=== PATIENT | female | born 2000 | race Caucasian/White ===

== ENCOUNTER 2025-09-07 13:22 | Emergency (ER) | payer OTHER, SELFPAY ==
[2025-09-07 13:31] VITALS: BP 105/79; PULSE 114; RESP 16; TEMP 36.6; O2SAT 98
--- NOTE | 2025-09-07 14:43 | ED.GENADULT ---
HPI - General Adult General Chief complaint: Skin/Abscess/Foreign Body Stated complaint: Rash on left arm Source: patient Mode of arrival: ambulatory Limitations: no limitations History of Present Illness HPI narrative: Patient presents for evaluation of a blistered lesion to left forearm. She first experienced itching in the left forearm two days ago. She was wearing a sweater at the time of the event. She later noted redness and developed a blistered lesion in the forearm thereafter. She applied hydrocortisone cream without improvement. No fever, chills, nausea, vomiting or drainage from the area. She denies considerable pain. She has an of streaking that goes proximally into the left upper arm. She is not diabetic. Related Data Home Medications ?Medication ?Instructions ?Recorded ?Confirmed ?Last Taken ?Type No Home Medications 09/07/25 09/07/25 Unknown History Allergies Allergy/AdvReac Type Severity Reaction Status Date / Time No Known Allergies Allergy Verified 09/07/25 13:32 Review of Systems Review of Systems: CONSTITUTIONAL: Denies fever, chills, or sweats. EYES: Denies visual changes, redness, or discharge. ENT: Denies rhinorrhea, congestion, sore throat, or otalgia. CARDIOVASCULAR: Denies chest pain, palpitations, or edema. RESPIRATORY: Denies cough or dyspnea. GASTROINTESTINAL: Denies abdominal pain, nausea, vomiting, or diarrhea. GENITOURINARY: Denies dysuria or hematuria. SKIN: Reports blistered lesion to left forearm with surrounding redness that streaks into the left upper arm MUSCULOSKELETAL: Denies back pain, joint pain, or myalgia. NEUROLOGIC: Denies headache, numbness, dizziness, or weakness. PSYCHIATRIC: Denies anxiety or depression. [facility] Past Medical History Medical History No pertinent past medical history Surgical History Surgical History No pertinent past surgical history Family History Family History Mother Family history non-contributory Social History Social History Additional occupation/education comments: dental student Gender identity (if verbalized by the patient): Female Spiritual care concerns: No Exam Narrative: GENERAL: Well-appearing, well-nourished, and in no acute distress. HEAD: Normocephalic, atraumatic. EYES: PERRLA and EOMI. ENT: Nares clear, no rhinorrhea or epistaxis. Mucous membranes moist. Oropharynx without tonsillar hypertrophy exudate or other lesions. Bilateral TMs pearly collins nonbulging NECK: Supple. No adenopathy or masses. No carotid bruits or JVD CHEST: Clear to auscultation. No respiratory distress. No wheezes rales or rhonchi HEART: Regular rate and rhythm. No murmur heard. Normal peripheral pulses. ABDOMEN: Soft, nontender, nondistended, normal active bowel sounds. EXTREMITIES: Normal range of motion. No edema. SKIN: Approximately 1.5 cm blistered lesion to the left forearm with surrounding redness. There is a streak of erythema moving proximally into the left upper arm. NEURO: No focal deficits. Alert and oriented x3. PSYCH: Normal mood and affect. Course Course Emergency Course: This is a 24-year-old female who presented for evaluation of a blistered lesion to the left forearm. There is erythema streaking into the left upper arm. Given the presence of streaking, I recommended she go to the ER for further evaluation and treatment. She is agreeable with this plan. [facility] is her facility of choice. I contacted the ER at [facility] and spoke with RN, Kike. He indicates that Dr Cardona will accept pt for transfer there. Pt transferred via private vehicle. Level of Care: Express Care Visit Vital Signs Vital signs: Vital Signs Temperature 36.6 C 09/07/25 13:31 Pulse Rate 114 H 09/07/25 13:31 Respiratory Rate 16 09/07/25 13:31 Blood Pressure 105/79 09/07/25 13:31 Pulse Oximetry 98 09/07/25 13:31 Oxygen Delivery Room Air 09/07/25 13:31 Temperature 36.6 C 09/07/25 13:31 Pulse Rate 114 H 09/07/25 13:31 Respiratory Rate 16 09/07/25 13:31 Blood Pressure 105/79 09/07/25 13:31 Pulse Oximetry 98 09/07/25 13:31 Oxygen Delivery Room Air 09/07/25 13:31 Medical Decision Making Vital Signs Vital Signs: Vital Signs Temperature 36.6 C 09/07/25 13:31 Pulse Rate 114 H 09/07/25 13:31 Respiratory Rate 16 09/07/25 13:31 Blood Pressure 105/79 09/07/25 13:31 Pulse Oximetry 98 09/07/25 13:31 Oxygen Delivery Room Air 09/07/25 13:31 Temperature 36.6 C 09/07/25 13:31 Pulse Rate 114 H 09/07/25 13:31 Respiratory Rate 16 09/07/25 13:31 Blood Pressure 105/79 09/07/25 13:31 Pulse Oximetry 98 09/07/25 13:31 Oxygen Delivery Room Air 09/07/25 13:31 Discharge Plan Discharge Clinical Impression: Cellulitis Patient Disposition: Acute Care Hospital Condition: Stable Patient Language: Cymro Prescriptions: No Action No Home Medications Time of Disposition: 14:42
--- OUTSIDE RECORDS SUMMARY | 2025-09-07 16:19 | XMS_ITS | Clinical Summary ---
Author Organization [facility] Address [address] [place] [address] Care Team Providers Care Puttier Name Role Phone None, Provider Primary Care Provider Unavaila ble Allergies No known active allergies Social History Tobacco Use Types Packs/Day Years Used Date Smoking Tobacco: Never Smokeless Tobacco: Never Alcohol Use Standard Drinks/Week Comments Yes 0 (1 standard drink = 0.6 oz pur e alcohol) rarely Comments No Sex and Gender Information Value Date Recorded Sex Assigned at Not on file Legal Sex Female 10:10 AM CDT Gender Identity Not on file Sexual Orientation Not on file Last Filed Vital Signs Vital Sign Reading Time Taken Comments Blood Pressure 106/74 06/15/2021 10:21 AM CDT Pulse 100 06/15/2021 11:24 AM CDT Temperature 37.1 C (98.7 F) 06/15/2021 10:21 AM CDT Respiratory Rate 18 06/15/2021 10:21 AM CDT Oxygen Saturation 96% 06/15/2021 10:21 AM CDT Inhaled Oxygen Concentration - - Weight 65.8 kg (145 lb) 06/15/2021 10:58 AM CDT Height 170.2 cm (5' 7) 06/15/2021 10:21 AM CDT Body Mass Index 22.71 06/15/2021 10:21 AM CDT Plan of Treatment Health Maintenance Due Date Last Done Comments Cervical Cancer Screening Pa p Smear (Age 21 to 29) Every 3 Years 1998 Cervical Cancer Screening 1998 Annual Physical 2001 HPV Vaccines (1 - 3-dose series) 2013 Hepatitis C 2016 DTaP, Tdap and Td Vaccines ( 1 - Tdap) 2017 Hepatitis B Vaccines (1 of 3 - 19+ 3-dose series) 2017 COVID-19 Vaccine (2023-2 5 season) 2025 Influenza Adult (#1) 2025 Hepatitis A Vaccines Aged Out No long er eligible based on patient's age to complete this topic Meningococcal B Vaccine Aged Out No l onger eligible based on patient's age to complete this topic Meningococcal Vaccine Aged Out No saundra jim eligible based on patient's age to complete this topic Pneumococcal Vaccine: Pediat rics (0 to 5 Years) and At-Risk Patients (6 to 49 Years) Aged Out No longer eligible b ased on patient's age to complete this topic RSV Immunizations Under 20 Months Aged Out No longer eligible based on patient's age to complete this topic Insurance Care Teams Puttier Relationship Specialty Start Date End Date None, Provider, PCP - General 06/15/21
--- OUTSIDE RECORDS SUMMARY | 2025-09-07 16:19 | XMS_ITS | Clinical Summary ---
Author Organization [facility] Address [address] [place] [address] Care Team Providers Care Spiral Tube Winder Helper Name Role Phone Unavailable Primary Care Provider Unavailabl e Medications chlorhexidine (PERIDEX) 0.12 % solution Use 15 mL in the mouth or throat twice a day. Swish and spit with 15 mL twice daily after brushing (do not use for more than two consecutive weeks) 473 mL 1 Active ibuprofen (ADVIL,MOTRIN) 600 mg tablet Take 1 tablet (600 mg total) by mouth every 6 (six) hours if needed for mild pain or moderate pain. 20 tablet 1 Active Social History Tobacco Use Types Packs/Day Years Used Date Smoking Tobacco: Never Smokeless Tobacco: Never Alcohol Use Standard Drinks/Week Comments Yes 0 (1 standard drink = 0.6 oz pur e alcohol) Comments Unknown Sex and Gender Information Value Date Recorded Sex Assigned at Not on file Legal Sex Female 6:49 AM PST Gender Identity Not on file Sexual Orientation Not on file Plan of Treatment Health Maintenance Due Date Last Done Comments Dental Oral Exam 1998 Dental Prophylaxis 1998 Dental X-Ray: Bitewings 1998 Dental X-Ray: Full Mouth 1998 Dental X-Ray: Panoramic 11/08/2024 11/07/2021 Insurance [employer] PPO
--- OUTSIDE RECORDS SUMMARY | 2025-09-07 16:19 | XMS_ITS | Encounter Summary ---
Author Organization [facility] Address [address] [place] [address] Care Team Providers Care Clicker Operator Name Role Phone Unavailable Primary Care Provider Unavailabl e Prior Encounters Date Type Department Care Team Description 11/07/2021 Travel 11/07/2021 8:45 AM PACKING LINE OPERATOR Office Visit [facility] [address] [place] [address] Natacha Chow DDS Plan of Treatment Not on file Procedures Procedure Name Priority Date/Time Associated Diagnosis Comments PLACEMENT OF INTRA-SOCKET BIOLOGICAL DRESSING TO AID IN HEMOSTASIS OR CLOT STABILIZATION, PER SITE Routine 11/07/2021 8:45 AM PACKING LINE OPERATOR PLACEMENT OF INTRA-SOCKET BIOLOGICAL DRESSING TO AID IN HEMOSTASIS OR CLOT STABILIZATION, PER SITE Routine 11/07/2021 8:45 AM PACKING LINE OPERATOR PLACEMENT OF INTRA-SOCKET BIOLOGICAL DRESSING TO AID IN HEMOSTASIS OR CLOT STABILIZATION, PER SITE Routine 11/07/2021 8:45 AM PACKING LINE OPERATOR PLACEMENT OF INTRA-SOCKET BIOLOGICAL DRESSING TO AID IN HEMOSTASIS OR CLOT STABILIZATION, PER SITE Routine 11/07/2021 8:45 AM PACKING LINE OPERATOR OS CONSULT Routine 11/07/2021 8:45 AM PACKING LINE OPERATOR THERAPEUTIC PARENTERAL DRUGS, TWO OR MORE ADMINISTRATIONS, DIFFERENT MEDICATIONS Routine 11/07/2021 8:45 AM PACKING LINE OPERATOR DEEP SEDATION/GENERAL ANESTHESIA EACH SUBSEQUENT 15 MINUTE INCREMENT Routine 11/07/2021 8:45 AM PACKING LINE OPERATOR DEEP SEDATION/GENERAL ANESTHESIA EACH SUBSEQUENT 15 MINUTE INCREMENT Routine 11/07/2021 8:45 AM PACKING LINE OPERATOR DEEP SEDATION/GENERAL ANESTHESIA EACH SUBSEQUENT 15 MINUTE INCREMENT Routine 11/07/2021 8:45 AM PACKING LINE OPERATOR DEEP SEDATION/GENERAL ANESTHESIA FIRST 15 MINUTES Routine 11/07/2021 8:45 AM PACKING LINE OPERATOR 17 REMOVAL OF IMPACTED TOOTH - COMPLETELY BONY Routine 11/07/2021 8:45 AM PACKING LINE OPERATOR 16 REMOVAL OF IMPACTED TOOTH - COMPLETELY BONY Routine 11/07/2021 8:45 AM PACKING LINE OPERATOR 1 REMOVAL OF IMPACTED TOOTH - COMPLETELY BONY Routine 11/07/2021 8:45 AM PACKING LINE OPERATOR 32 REMOVAL OF IMPACTED TOOTH - COMPLETELY BONY Routine 11/07/2021 8:45 AM PACKING LINE OPERATOR Visit Diagnoses Not on file [facility]
--- OUTSIDE RECORDS SUMMARY | 2025-09-07 16:20 | XMS_ITS | Clinical Summary ---
Author Organization [facility] Address [address] [place] [address] Care Team Providers Care Automatic Spreader Operator Name Role Phone Unavailable Primary Care Provider Unavailabl e Source Comments [facility],non-owned Affiliates and Associated Physician Practices is amultiple site organization consisting of ambulatory clinics and hospital sitesin [place], [place], [place] and [place]. This disclosure is being madepursuant to the Care Everywhere program and may not contain all information available regarding this patient. Last updated 18.[facility] Allergies No known active allergies Medications * Be aware that medications may not be up to date on this document. Alwaysverify current medications with the patient. fluticasone propionate (FLONASE) 50 MCG/ACT nasal sprayIndication s:Acute URI [place] 2 sprays into each nostril once daily 1 bottles 04/04/2019 Active Social History Tobacco Use Types Packs/Day Years Used Date Smoking Tobacco: Every Day Smokeless Tobacco: Never Alcohol Use Standard Drinks/Week Comments Yes 0 (1 standard drink = 0.6 oz pur e alcohol) Comments No Sex and Gender Information Value Date Recorded Sex Assigned at Not on file Legal Sex Female 10:01 AM CDT Gender Identity Not on file Sexual Orientation Not on file Last Filed Vital Signs Vital Sign Reading Time Taken Comments Blood Pressure 98/60 04/04/2019 3:56 PM CDT Pulse 88 04/04/2019 3:56 PM CDT Temperature 36.8 C (98.3 F) 04/04/2019 3:56 PM CDT Respiratory Rate 16 04/04/2019 3:56 PM CDT Oxygen Saturation - - Inhaled Oxygen Concentration - - Weight 63.5 kg (140 lb) 04/04/2019 3:56 PM CDT Height 170.2 cm (5' 7) 04/04/2019 3:56 PM CDT Body Mass Index 21.93 04/04/2019 3:56 PM CDT Plan of Treatment Health Maintenance Due Date Last Done Comments HIV SCREENING 2013 HPV VACCINE (1 - 3-dose series) 2013 HEPATITIS C SCREENING 11/16/2016 DTAP/TDAP/TD VACCINES (1 - Tdap) 2017 HEPATITIS B VACCINE (1 of 3 - 19+ 3-dose series) 2017 DEPRESSION SCREENING 11/18/2024 COVID-19 VACCINE (1 - 2023-2 5 season) 2025 INFLUENZA VACCINE (#1) 2025 ZOSTER VACCINE (1 of 2) 2048 HIB VACCINE Aged Out No longer eligi ble based on patient's age to complete this topic MENINGOCOCCAL (Group B) VACC INE SHARED DECISION-MAKING Aged Out No longer eligibl e based on patient's age to complete this topic MENINGOCOCCAL GROUPS A/C/Y/W VACCINE Aged Out No longer eligible b ased on patient's age to complete this topic PNEUMOCOCCAL VACCINE Aged Out No long er eligible based on patient's age to complete this topic Insurance
== END 2025-09-07 14:50 | disposition short-term general hospital (02) ==
PROVIDERS: Emergency Provider Nurse Practitioner
DX: L03.114 Cellulitis of left upper limb (principal)
CPT/HCPCS: 99202; G0463